=== PATIENT | male | born 1950 | race Caucasian/White ===

== ENCOUNTER 2017-12-17 11:17 | Outpatient (CLI) | payer OTHER ==
[~2017-12-17 11:17] MED LIST: B COMPLEX1200 MCG/1; CATAFLAM50 MG PO; FENOFIBRATE145 MG; ORPH100T PO; TAMS0.4C
== END 2017-12-17 11:27 | disposition home or self-care (01) ==
LOC: LAB 11:17
DX: I10 Essential (primary) hypertension (principal); M54.5 Low back pain; Z01.810 Encounter for preprocedural cardiovascular examination; E66.8 Other obesity; Z12.11 Encounter for screening for malignant neoplasm of colon; E78.89 Other lipoprotein metabolism disorders; E03.8 Other specified hypothyroidism

== ENCOUNTER 2018-05-14 09:40 | Outpatient (CLI) | payer OTHER | END 2018-05-14 09:48 | disposition home or self-care (01) | LOC: LAB 09:40 | DX: C61 Malignant neoplasm of prostate (principal); I10 Essential (primary) hypertension; N39.0 Urinary tract infection, site not specified; E11.00 Type 2 diabetes mellitus with hyperosmolarity without nonketotic hyperglycemic-hyperosmolar coma (NKHHC) ==

== ENCOUNTER 2018-07-31 09:58 | Outpatient (CLI) | payer OTHER | END 2018-07-31 15:00 | disposition home or self-care (01) | LOC: LAB 09:58 | DX: N39.0 Urinary tract infection, site not specified (principal); C61 Malignant neoplasm of prostate ==

== ENCOUNTER 2019-04-13 10:08 | Outpatient (CLI) | payer OTHER | END 2019-04-13 10:17 | disposition home or self-care (01) | LOC: RAD 10:08 | DX: E03.8 Other specified hypothyroidism (principal); I10 Essential (primary) hypertension; M54.5 Low back pain; E78.89 Other lipoprotein metabolism disorders; E66.8 Other obesity; N40.1 Benign prostatic hyperplasia with lower urinary tract symptoms; N39.8 Other specified disorders of urinary system; Z87.448 Personal history of other diseases of urinary system; R39.15 Urgency of urination; Z68.22 Body mass index [BMI] 22.0-22.9, adult; N41.0 Acute prostatitis; Z12.11 Encounter for screening for malignant neoplasm of colon ==

== ENCOUNTER 2019-07-31 09:08 | Outpatient (CLI) | payer OTHER | END 2019-07-31 09:14 | disposition home or self-care (01) | LOC: LAB 09:08 | DX: M54.5 Low back pain (principal); E03.8 Other specified hypothyroidism; E78.89 Other lipoprotein metabolism disorders; E66.8 Other obesity; N40.1 Benign prostatic hyperplasia with lower urinary tract symptoms; N39.8 Other specified disorders of urinary system; Z87.448 Personal history of other diseases of urinary system; R39.15 Urgency of urination; C61 Malignant neoplasm of prostate; E66.01 Morbid (severe) obesity due to excess calories; E64.8 Sequelae of other nutritional deficiencies; E78.3 Hyperchylomicronemia; E78.2 Mixed hyperlipidemia; Z68.22 Body mass index [BMI] 22.0-22.9, adult; N41.0 Acute prostatitis; Z12.11 Encounter for screening for malignant neoplasm of colon; I10 Essential (primary) hypertension ==

== ENCOUNTER 2024-11-10 07:02 | Emergency (ER) | payer OTHER ==
[~2024-11-10] VITALS: Ht 170.2 cm; Wt 81.6 kg
[2024-11-10] MEDS ORDERED: DONEPEZIL HCL10 MG PO (07:14)
[2024-11-10] MEDS ORDERED: MEMANTINE HCL E21 MG PO (07:14)
[2024-11-10] MEDS ORDERED: ROSUVASTATIN CA10 MG PO (07:15)
[2024-11-10] MEDS ORDERED: PREGABALIN150 MG PO (07:15)
[2024-11-10] MEDS ORDERED: LEVOTHYROXINE25 MC1 PO (07:15)
[2024-11-10] MEDS ORDERED: FENOFIBRATE48 MG PO (07:15)
[2024-11-10] MEDS ORDERED: LORAZEPAM1 MG PO (07:15)
[2024-11-10 09:09] LABS: HEMATOCRIT 35.4 % (39.0-48.0); HEMOGLOBIN 11.9 g/dL (13-16.00); MEAN CELL VOLUME 85.7 fL (80.0-100.00); MEAN CORPUSCULAR HEMOGLOBIN 28.8 pg (27.00-32.0); MEAN CORPUSCULAR HGB CONC 33.6 g/dl (32.0-36.0); PLATELET COUNT 220 K/uL (150-450); RED BLOOD COUNT 4.14 M/uL (4.00-6.00); RED CELL DISTRIBUTION WIDTH 14.5 % (11.5-14.5)
[2024-11-10 09:38] LABS: INR 1.07; PARTIAL THROMBOPLASTIN TIME 29.9 SECONDS (22.0-34.0); PROTHROMBIN TIME 11.6 SECONDS (9.0-11.5)
[2024-11-10 09:52] LABS: ALBUMIN 3.4 gm/dL (3.4-5.0); BILIRUBIN TOTAL 0.96 mg/dL (0.3-1.2); CALCIUM 9.3 mg/dL (8.5-10.1); CREATININE SERUM 0.84 mg/dL (0.70-1.30); GFR 89.32; GLOBULINA 3.3 G/DL (2.4-3.5); POTASSIUM 4.03 mEq/L (3.5-5.1); TOTAL PROTEIN 6.7 gm/dL (6.4-8.2)
[2024-11-10] MEDS ORDERED: KETOROLAC TROMETHAMINE 30 MG VIAL IU ONE (12:45)
== END 2024-11-10 12:42 | disposition home or self-care (01) ==
LOC: ER 07:02
PROVIDERS: General Practice
DX: S89.81XA Other specified injuries of right lower leg, initial encounter (principal); W19.XXXA Unspecified fall, initial encounter; Y93.89 Activity, other specified; Y92.89 Other specified places as the place of occurrence of the external cause; Y99.8 Other external cause status; M79.604 Pain in right leg; I10 Essential (primary) hypertension; E03.8 Other specified hypothyroidism
CPT/HCPCS: 36415; 70450; 72125; 73501; 73551; 96365; 99284; J1885